=== PATIENT | male | born 1930 | race Hispanic/Latino ===

== ENCOUNTER 2016-05-18 13:28 | Outpatient (CLI) | payer MEDICARE ==
--- NOTE | 2016-05-18 15:27 | XRay Report ---
ROUTINE CHEST, TWO VIEWS: HISTORY: Cough, posterior chest pain. The trachea, heart, mediastinal contour, lung mcknight and bony thorax are unremarkable. IMPRESSION: No acute cardiopulmonary process.
== END 2016-05-18 13:29 | disposition home or self-care (01) ==
LOC: SPVIMAG 13:28
PROVIDERS: ATTEND Nurse Practitioner
DX: J06.9 Acute upper respiratory infection, unspecified (principal); R07.89 Other chest pain; R05 Cough
CPT/HCPCS: 71020